=== PATIENT | female | born 1950 | race Caucasian/White ===

== ENCOUNTER 2023-06-04 10:24 | Observation (INO) ==
[2023-06-04] MEDS ORDERED: MIRAPEX TAB 0.25 MG PO PRN (12:50)
[2023-06-04 13:14] LABS: BASOPHILS # (AUTO) 0.1 X10^3/uL (0.0-0.1); BASOPHILS % (AUTO) 1.1 % (0.2-1.0); EOSINOPHILS # (AUTO) 0.3 x10^3/uL (0.0-0.2); EOSINOPHILS % (AUTO) 4.3 % (0.9-2.9); LYMPHOCYTES # (AUTO) 1.8 X10^3/uL (1.3-2.9); MEAN CORPUSCULAR HEMOGLOBIN 28.7 pg (27.0-34.0); MEAN CORPUSCULAR HGB CONC 33.3 g/dL (33.0-35.0); MEAN CORPUSCULAR VOLUME 86.2 fL (80.0-100.0); MEAN PLATELET VOLUME 7.2 fL (7.4-11.0); MONOCYTES # (AUTO) 0.6 x10^3/uL (0.3-0.8); MONOCYTES % (AUTO) 7.7 % (0.0-13.0); NEUTROPHILS # (AUTO) 4.5 x10^3/uL (2.2-4.8); NEUTROPHILS % (AUTO) 61.9 % (42.0-75.0); PLATELET COUNT 234 X10^3/uL (150.0-450.0); RED BLOOD COUNT 4.18 X10^6/uL (3.5-5.4); RED CELL DISTRIBUTION WIDTH 13.5 % (11.6-16.5); WHITE BLOOD COUNT 7.3 X10^3/uL (3.6-10.0)
[2023-06-04 13:24] LABS: ALANINE AMINOTRANSFERASE 16 Units/L (12-78); ALKALINE PHOSPHATASE 77 Units/L (46-116); ASPARTATE AMINO TRANSFERASE 17 Units/L (15-37); BLOOD UREA NITROGEN 24 mg/dL (7-18); CALCIUM 8.3 mg/dL (8.5-10.1); CARBON DIOXIDE 28.4 mmol/L (21-32); CHLORIDE 104 mmol/L (98-107); COR CA(FOR HYPOALB) 9.1 mg/dL (8.5-10.1); CREATININE 1.13 mg/dL (0.55-1.02); GLUCOSE 105 mg/dL (65-99); POTASSIUM 3.7 mmol/L (3.5-5.1); SODIUM 140 mmol/L (136-145); TOTAL PROTEIN 6.5 g/dL (6.4-8.2); eGFR NON BLACK RACES 50 (>60)
[2023-06-04] MEDS: PHARMACY CONSULT - VANCOMYCIN XX SCH (14:01)
[2023-06-04] MEDS: LEXAPRO PO SCH (14:01)
[2023-06-04] MEDS: WELLBUTRIN XL 150 MG (DAILY) PO SCH (14:01)
--- NOTE | 2023-06-04 14:13 | RAD ---
EXAM: CHEST, 1 VIEW HISTORY: PRE-OP FOR INFECTED RT FOOT SX; COMPARISON: No relevant prior studies were available for comparison at the time of interpretation. TECHNIQUE: CHEST, 1 VIEW FINDINGS: Chest: Lines and tubes: None Mediastinum: Cardiac and mediastinal shadow is within normal limits for size and contour. Pulmonary vessels: No pulmonary vascular congestion. Lung arciniega: No suspicious airspace opacity. Pleura: No effusion. No pneumothorax. Bones and soft tissues: No acute osseous or soft tissue abnormality. IMPRESSION: 1. No acute cardiopulmonary abnormality THIS IS AN ELECTRONICALLY VERIFIED FINAL REPORT 06/04/2023 2:10 PM - Electronically signed by Alexis Foreman MD
[2023-06-04] MEDS: VANCOMYCIN IV *PREMIX 1 G/200 ML BAG 1 G/200 ML PIGGYBACK IV ONE (15:02)
[2023-06-04] MEDS: LR 1,000 ML IV 1,000 ML IV SCH (15:06)
[2023-06-04] MEDS: VANCOMYCIN IV *PREMIX 1 G/200 ML BAG 1 G/200 ML PIGGYBACK IV SCH (15:06)
[2023-06-04 15:11] VITALS: BMI 22.3
--- NOTE | 2023-06-04 17:14 | NOTE.SOAP ---
Soap Note Note for Day of Date of Exam: 06/04/23 Subjective Data Subjective Data: Pleasant 73 year old female seen and evaluated with her this afternoon. She presents due to a post op infection of anterior tibial tendon repair to the right foot. She denies any pain to the area. She has been doign dressing changes herself. She has been on PO antibiotics and cultures were taken in the office. She denies any constitutional symptoms at this time. Objective Data Objective Data: Cicatrix noted to the anterior ankle with a small plug noted at the proximal end of the incison thats dry. There was about 1cc of purulence drainage that was expressed. Mild erythema around the incision. Skin wrinkles noted. Plug probes down to to tendon about 1cm deep. Neurovascular status intact. Muscular exam deferred. Assessment Assessment: 73 year old female with cellulitis and possible abscess to right ankle secondary to primary repair of anterior tibial tendon Plan Plan: Patient was seen bedside along the . Diagnosis and treatment were discussed in full detailed. All risks and benefits of surgical intervention were discussed in detail. Patient understands and wishes to proceed with surgery. Plan is to take patient to the operating room tomorrow for an incision and jeovany inage with possible debridement of the tendon and implanted artelon graft due to infection. Right now the priority is to treat the infection and patient understands this will be a staged approach. Patient to be NPO after midnight and plan to take patient to the operating room tomorrow 06/04 time pending OR availability. Surgery time: 45 minutes
[2023-06-04] MEDS: HIBICLENS WASH EXT ONE (21:07)
[2023-06-05 06:14] LABS: ALANINE AMINOTRANSFERASE 14 Units/L (12-78); ALBUMIN 2.6 g/dL (3.4-5.0); ALKALINE PHOSPHATASE 67 Units/L (46-116); ASPARTATE AMINO TRANSFERASE 16 Units/L (15-37); BLOOD UREA NITROGEN 21 mg/dL (7-18); CALCIUM 8.1 mg/dL (8.5-10.1); CARBON DIOXIDE 27.7 mmol/L (21-32); CHLORIDE 104 mmol/L (98-107); COR CA(FOR HYPOALB) 9.2 mg/dL (8.5-10.1); CREATININE 1.11 mg/dL (0.55-1.02); GLUCOSE 98 mg/dL (65-99); POTASSIUM 3.9 mmol/L (3.5-5.1); SODIUM 139 mmol/L (136-145); TOTAL PROTEIN 5.9 g/dL (6.4-8.2); eGFR NON BLACK RACES 51 (>60)
[2023-06-05 06:27] LABS: BASOPHILS # (AUTO) 0.1 X10^3/uL (0.0-0.1); BASOPHILS % (AUTO) 0.9 % (0.2-1.0); EOSINOPHILS # (AUTO) 0.3 x10^3/uL (0.0-0.2); EOSINOPHILS % (AUTO) 4.8 % (0.9-2.9); HEMATOCRIT 34.9 % (36.0-47.0); HEMOGLOBIN 11.7 g/dL (12.0-16.0); LYMPHOCYTES # (AUTO) 1.9 X10^3/uL (1.3-2.9); LYMPHOCYTES % (AUTO) 27.9 % (21.0-51.0); MEAN CORPUSCULAR HEMOGLOBIN 28.8 pg (27.0-34.0); MEAN CORPUSCULAR HGB CONC 33.4 g/dL (33.0-35.0); MEAN CORPUSCULAR VOLUME 86.2 fL (80.0-100.0); MEAN PLATELET VOLUME 6.9 fL (7.4-11.0); MONOCYTES # (AUTO) 0.6 x10^3/uL (0.3-0.8); MONOCYTES % (AUTO) 9.1 % (0.0-13.0); NEUTROPHILS # (AUTO) 3.9 x10^3/uL (2.2-4.8); NEUTROPHILS % (AUTO) 57.3 % (42.0-75.0); PLATELET COUNT 218 X10^3/uL (150.0-450.0); RED BLOOD COUNT 4.05 X10^6/uL (3.5-5.4); RED CELL DISTRIBUTION WIDTH 13.5 % (11.6-16.5); WHITE BLOOD COUNT 6.8 X10^3/uL (3.6-10.0)
--- NOTE | 2023-06-05 11:29 | VAS ---
EXAM:LOWER EXT ARTERIAL-UNILATERALHISTORY:INFECTION RIGHT FOOT; evaluate for vascular disease.COMPARISON:NoneTECHNIQUE:27 images made by the electronics research engineer. Sher scale and color flow Doppler images of the right lower extremity arterial system were obtained. Spectral waveform analysis was performed. 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 No hemodynamically significant stenosis.IMPRESSION:1. No evidence for peripheral arterial occlusive diseaseTHIS IS AN ELECTRONICALLY VERIFIED FINAL REPORT06/05/2023 11:25 AM - Electronically signed by Ravindra Martin MD
[2023-06-05] MEDS: LR 1,000 ML IV 1,000 ML IV ONE (11:45)
[2023-06-05] MEDS: PEPCID 20 MG VIAL ONE (12:04)
[2023-06-05] MEDS: DIPRIVAN VIAL 20 ML ONE (12:04)
[2023-06-05] MEDS: ZOFRAN INJ 4 MG VIAL ONE (12:04)
[2023-06-05] MEDS: VERSED ONE (12:04)
[2023-06-05] MEDS: NS 100 ML IV 100 ML ONE (12:04)
[2023-06-05] MEDS ORDERED: KETAMINE HCL ONE (12:04)
[2023-06-05] MEDS: ANCEF VIAL 1 GRAM ONE (12:04)
[2023-06-05] MEDS: FENTANYL VIAL INJ 100 mcg ONE (12:04)
[2023-06-05] MEDS: BETADINE SOLN ONE (12:17)
[2023-06-05] MEDS: VANCOMYCIN HCL ONE (12:17)
[2023-06-05] MEDS: TOBRAMYCIN SULFATE ONE (12:17)
[2023-06-05] MEDS: MARCAINE 0.25% INJ ONE (12:17)
[2023-06-05] MEDS: ProvayBLUE 0.5% ONE (12:17)
[2023-06-05] MEDS: NORCO 5/325 MG TAB PO PRN (13:17)
[2023-06-05] MEDS: NORCO 5/325 MG TAB ONE (14:56)
[2023-06-05 14:57] VITALS: RESP 20
[2023-06-05 15:57] VITALS: BP 118/59; PULSE 74; TEMP 97.2; O2SAT 94
[2023-06-05] MEDS ORDERED: PHARMACY COMMENT IV NR (20:00)
[2023-06-09 10:10] LABS: ZINC PLASMA 59.3 ug/dL (60.0-120.0)
== END 2023-06-05 15:30 | disposition home or self-care (01) ==
LOC: MED/SURG → INTOOBSV 11:42 → OBSVTOIN 11:42
PROVIDERS: ADMIT Obstetrics & Gynecology Obstetrics; ATTEND Obstetrics & Gynecology Obstetrics